=== PATIENT | male | born 1965 | race Caucasian/White ===

== ENCOUNTER 2016-10-19 11:15 | Day surgery (SDC) | payer OTHER ==
[~2016-10-19] VITALS: Ht 157.5 cm; Wt 79.6 kg
[2016-10-19] VITALS (11 sets, daily range): BP systolic 116–134; BP diastolic 70–82; PULSE 51–82; RESP 11–16; Ht 157.5 cm; Wt 79.6 kg
[~2016-10-19 11:15] MED LIST: CEFAZOLIN 1 GM INJ ONE; CEFAZOLIN 2 GM/50 ML (PMX) 50 ML IVPB SCH; NO MEDS; ONDANSETRON 4 MG INJ ONE; SOD CHLORIDE 0.9% 1,000 ML IV SCH
[2016-10-19 12:47] LABS: ADD SCAN DIFF NO
[2016-10-19 12:50] LABS: BASOPHILS % 0.4 % (0.0-2.0); EOSINOPHILS # 0.1 10^3/ul (0.0-0.5); EOSINOPHILS % 1.9 % (0.0-7.0); HEMATOCRIT 39.2 % (42.0-52.0); HEMOGLOBIN 13.7 g/dl (14.0-18.0); LYMPHOCYTES # 1.4 10^3/ul (0.8-2.9); LYMPHOCYTES % 30.2 % (15.0-51.0); MEAN CORPUSCULAR HEMOGLOBIN 29.6 pg (29.0-33.0); MEAN CORPUSCULAR HGB CONC 34.9 g/dl (32.0-37.0); MEAN CORPUSCULAR VOLUME 84.7 fl (82.0-101.0); MEAN PLATELET VOLUME 11.1 fl (7.4-10.4); MONOCYTE # 0.3 10^3/ul (0.3-0.9); MONOCYTES % 7.3 % (0.0-11.0); NEUTROPHIL # 2.8 10^3/ul (1.6-7.5); PLATELET COUNT 172 10^3/UL (140-415); RED BLOOD COUNT 4.63 10^6/ul (4.70-6.10); RED CELL DISTRIBUTION WIDTH 12.5 % (11.5-14.5); WHITE BLOOD COUNT 4.6 10^3/ul (4.8-10.8)
[2016-10-19 13:01] LABS: INR 0.98; PARTIAL THROMBOPLASTIN TIME 25.8 Sec (25.0-35.0)
[2016-10-19 13:04] LABS: CREATININE 0.82 mg/dl (0.61-1.24)
[2016-10-19 13:05] LABS: CALCIUM 9.1 mg/dl (8.4-10.2)
[2016-10-19] MEDS ORDERED: POLYMYXIN/BACITRACIN 1L IRRIG ONE ×2 (14:08→14:18)
[2016-10-19] MEDS ORDERED: BUPIVACAINE 0.5%/EPI (SDV) 30 ML INJ ONE (14:18)
[2016-10-19] MEDS ORDERED: MIDAZOLAM 1 MG/ML 2 ML INJ ONE (14:43)
[2016-10-19] MEDS ORDERED: GLYCOPYRROLATE 0.4 MG INJ ONE (15:53)
[2016-10-19] MEDS ORDERED: LIDOCAINE 2% (SDV) 5 ML INJ ONE (15:53)
[2016-10-19] MEDS ORDERED: PROPOFOL 20 ML ONE (15:53)
[2016-10-19] MEDS ORDERED: NEOSTIGMINE 3 MG/3 ML SYRINGE ONE (15:53)
[2016-10-19] MEDS ORDERED: ROCURONIUM 50 MG INJ ONE (15:53)
[2016-10-19] MEDS ORDERED: HYDROmorphONE (0.2 MG/ML) 10ML SYG IV PRN ×2 (16:00)
[2016-10-19] MEDS ORDERED: FENTAnyl 50 MCG/ML VIAL IV PRN (16:00)
[2016-10-19] MEDS ORDERED: ONDANSETRON 4 MG INJ IV PRN (16:00)
[2016-10-19] MEDS ORDERED: MEPERIDINE 25 MG INJ IV PRN (16:00)
[2016-10-19] MEDS ORDERED: DIPHENHYDRAMINE 50 MG INJ IV PRN (16:00)
--- NOTE | 2016-10-19 19:20 | OPR ---
DATE OF OPERATION: 10/19/2016 PREOPERATIVE DIAGNOSIS: Symptomatic left inguinal hernia. POSTOPERATIVE DIAGNOSIS: Symptomatic left inguinal hernia. OPERATION PERFORMED: Left inguinal hernia repair with mesh. ANESTHESIA: General. ANESTHESIOLOGIST: Sabino Perry MD SURGEON: Alfie Vicente MD EMT INTERMEDIATE: None. INDICATIONS FOR PROCEDURE: The patient is a 51-year-old male who presented with a symptomatic left inguinal hernia. He was counseled as to the risks versus benefits of repair. He consented and was scheduled for surgery. DESCRIPTION OF PROCEDURE: The patient was brought to the operating theater, placed under general an esthesia. The left groin was shaved, prepped, and draped in usual sterile fashion. Approximately 5 to 6 cm incision was made in the left groin transversing the approximate locations of the internal and external inguinal rings. Subcutaneous tissue was dissected with cautery down through Carola fas poornima until the aponeurosis of the external oblique was completely visualized. The aponeurosis was in cised in the direction of the fibers through the external ring. With blunt dissection, medial and l ateral flaps were developed. The ilioinguinal and iliohypogastric nerves were identified and kept o ut of harm's way. At this point, an ilioinguinal and iliohypogastric nerve block was performed with 0.5% Marcaine local anesthetic. The spermatic cord was then elevated off the left pubic tubercle. There was no evidence of an indirect hernia sac; however, there was an obvious direct hernia noted. Decision was made to repair it with an onlay mesh patch. The mesh was cut to size and a slot was cut superiorly to facilitate cord transgression. It was then sutured with 2-0 Prolene sutures in ru nning fashion laterally to the inguinal ligament, medially to the abdominal wall fascia. The slot w as then reapproximated with interrupted 2-0 Prolene sutures. The wound was irrigated. There was no evidence of bleeding. The left testicle was palpated and pulled back into its normal anatomic loca tion within the left scrotum. The aponeurosis of the external oblique was then reapproximated with a 3-0 Vicryl suture in running fashion. The subcutaneous tissue was irrigated with Betadine, and th e skin was then reapproximated with skin claudia. The patient tolerated procedure well. Estimated blood loss was 20 mL. There were no complications and the patient transported in stable condition t o the recovery room. Dictated By: ALFIE BECERRIL/DEMETRIA Conf#: [id number] DID#: [id number]
== END 2016-10-19 17:59 | disposition home or self-care (01) ==
LOC: SDS 11:15
PROVIDERS: ATTEND Surgery Surgical Oncology
DX: K40.90 Unilateral inguinal hernia, without obstruction or gangrene, not specified as recurrent (principal)
CPT/HCPCS: 49505; 80048; 85025; 85610; 85730; C1781; J0690; J2250; J2405; J2710; J3010; Z7512; Z7610